=== PATIENT | male | born 1975 | race Caucasian/White ===

== ENCOUNTER 2023-03-04 07:20 | Day surgery (SDC) | payer OTHER ==
[~2023-03-04] VITALS: Ht 165.1 cm; Wt 68.7 kg
[~2023-03-04 07:20] MED LIST: CLEO300C2 PO; NS 1,000 ML IV ONE; OMEP1CAP73 PO
[2023-03-04] MEDS ORDERED: propofoL 200 MG/20 ML VIAL As Ordered ONE (08:13)
[2023-03-04] MEDS ORDERED: fentaNYL 100 MCG/2 ML INJECTION As Ordered ONE (08:14)
[2023-03-04 09:08] VITALS: BP 133/72
== END 2023-03-04 09:10 | disposition home or self-care (01) ==
LOC: M OPP 07:20
PROVIDERS: ATTEND Internal Medicine Gastroenterology
DX: Z12.11 Encounter for screening for malignant neoplasm of colon (principal); K63.5 Polyp of colon; K57.30 Diverticulosis of large intestine without perforation or abscess without bleeding; K21.00 Gastro-esophageal reflux disease with esophagitis, without bleeding; Z79.899 Other long term (current) drug therapy; Z88.5 Allergy status to narcotic agent; Z91.010 Allergy to peanuts
CPT/HCPCS: 43239; 45385; 88305; J3010